=== PATIENT | male | born 1995 | race Caucasian/White ===

== ENCOUNTER 2018-07-08 15:17 | Emergency (ER) | payer OTHER ==
[2018-07-08 16:12] VITALS: BP 137/78
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
== END 2018-07-08 17:13 | disposition home or self-care (01) ==
LOC: UCCORT 15:17
DX: S16.1XXA Strain of muscle, fascia and tendon at neck level, initial encounter (principal); S39.012A Strain of muscle, fascia and tendon of lower back, initial encounter; G44.309 Post-traumatic headache, unspecified, not intractable; V43.92XA Unspecified car occupant injured in collision with other type car in traffic accident, initial encounter; Y92.9 Unspecified place or not applicable
CPT/HCPCS: 99203; G0463

== ENCOUNTER 2018-07-19 16:12 | Emergency (ER) | payer OTHER ==
[2018-07-19 17:41] VITALS: BP 111/65
--- NOTE | 2018-07-19 17:50 | UC ---
Nausea/Vomiting/Diarrhea HPI - HPI Summary HPI Summary: Patient started having diarrhea last evening and has had approximately 5 bouts since last evening the last being approximately 2 hours ago. He denies any vomiting. He denies any abdominal pain. He's had no recent travel outside the [place]. - History of Current Complaint Chief Complaint: [facility] Stated Complaint: DIARRHEA Time Seen by Provider: 07/19/18 17:36 Hx Obtained From: Patient Onset/Duration: Sudden Onset Timing: Intermittent Episodes Lasting: - Intermittent episodes of the past 24 hours. Severity Initially: Moderate Severity Currently: Mild Pain Intensity: 6 Location: Other - Nights abdominal pain. Aggravating Factor(s): Food - Patient states when he eats food then he gets some abdominal cramping and then has bout of diarrhea. Alleviating Factor(s): Nothing Nausea/Vomiting Presence: None Diarrhea Presence: Yes Diarrhea Frequency: Every 3-4 hours - 5 times in the past 24 hours Diarrhea Duration: 12-24 hours Diarrhea Characteristics: Watery - Risk Factors Influenza Risk Factors: Negative Surgical Obstruction Risk Factor(s): Negative - Allergies/Home Medications Allergies/Adverse Reactions: Allergies Allergy/AdvReac Type Severity Reaction Status Date / Time No Known Allergies Allergy Verified 07/19/18 17:41 PMH/Surg Hx/FS Hx/Imm Hx Previously Healthy: Yes - Surgical History Surgical History: None - Family History Known Family History: Positive: Hypertension - Social History Occupation: Student Lives: Dormitory/Roommates Alcohol Use: Weekly Alcohol Amount: once a week Substance Use Type: None Smoking Status (MU): Never Smoked Tobacco Review of Systems All Other Systems Reviewed And Are Negative: Yes Constitutional: Positive: Negative Skin: Positive: Negative Eyes: Positive: Negative ENT: Positive: Negative Respiratory: Positive: Negative Cardiovascular: Positive: Negative Gastrointestinal: Positive: Diarrhea, Nausea. Negative: Abdominal Pain, Vomiting Genitourinary: Positive: Negative Motor: Positive: Negative Neurovascular: Positive: Negative Musculoskeletal: Positive: Negative Neurological: Positive: Negative Psychological: Positive: Negative Is Patient Immunocompromised?: No Physical Exam Triage Information Reviewed: Yes Appearance: Well-Appearing, No Pain Distress, Well-Nourished Vital Signs: Initial Vital Signs Temp 98.3 F 07/19/18 17:37 Pulse 59 07/19/18 17:37 Resp 15 07/19/18 17:37 BP 111/65 07/19/18 17:37 Pulse Ox 100 07/19/18 17:37 Vital Signs Reviewed: Yes Eye Exam: Normal ENT Exam: Normal Neck exam: Normal Respiratory Exam: Normal Cardiovascular Exam: Normal Abdominal Exam: Normal Abdomen Description: Positive: Nontender, No Organomegaly, Soft Bowel Sounds: Positive: Present Musculoskeletal Exam: Normal Neurological Exam: Normal Psychological Exam: Normal Skin Exam: Normal Naus/Vom/Diarrhea Course/Dx - Course Course Of Treatment: Patient has been comfortable here with no bouts of diarrhea while he spent here. He is planning on going on spring break out of the [place] this . - Differential Dx/Diagnosis Differential Diagnoses - Male: Diarrhea Provider Diagnosis: Diarrhea Is Visit Related: No Condition At Discharge: Good Discharge - Sign-Out/Discharge Documenting (check all that apply): Patient Departure All imaging exams completed and their final reports reviewed: No Studies - Discharge Plan Condition: Good Disposition: HOME Prescriptions: Ondansetron TAB* [Zofran 4 MG Tab*] 4 mg PO Q8H PRN #6 tab PRN Reason: Nausea Patient Education Materials: Loperamide (By mouth), Acute Diarrhea (ED) Referrals: Simon Sharma MD [Primary Care Provider] - Additional Instructions: Increase fluids, take the loperamide as directed. Take the Zofran every 8 hours as needed for nausea. - Billing Disposition and Condition Condition: GOOD Disposition: Home - Attestation Statements Provider Attestation: Per institutional requirements, I have reviewed the chart, however, I was not consulted specifically or made aware of this patient by the midlevel provider. I did not personally evaluate, interact with , or disposition this patient.
== END 2018-07-19 17:54 | disposition home or self-care (01) ==
LOC: UCCORT 16:12
DX: R19.7 Diarrhea, unspecified (principal); R10.9 Unspecified abdominal pain; R11.0 Nausea
CPT/HCPCS: 99212; G0463

== ENCOUNTER 2018-08-09 17:25 | Emergency (ER) | payer OTHER ==
[2018-08-09 18:59] VITALS: BP 130/54
--- NOTE | 2018-08-09 19:24 | UC ---
Ear Complaint HPI - HPI Summary HPI Summary: 23-year-old male comes in with a chief complaint of right ear pain. Patient is not a swimmer. No trauma. Feels pressure in the ear. Has tried some ibuprofen that did help some with the pain. Also has a sore throat. - History of Current Complaint Chief Complaint: [facility] Stated Complaint: RT EAR COMPLAINT Time Seen by Provider: 08/09/18 19:17 Pain Intensity: 7 - Allergies/Home Medications Allergies/Adverse Reactions: Allergies Allergy/AdvReac Type Severity Reaction Status Date / Time No Known Allergies Allergy Verified 08/09/18 18:59 Home Medications: Home Medications Ibuprofen TAB* [Motrin TAB* 400 MG] 400 mg PO Q6H PRN 08/09/18 [History Confirmed 08/09/18] PMH/Surg Hx/FS Hx/Imm Hx Previously Healthy: Yes - Surgical History Surgical History: None - Family History Known Family History: Positive: Hypertension - Social History Alcohol Use: Weekly Alcohol Amount: once a week Substance Use Type: None Smoking Status (MU): Never Smoked Tobacco Review of Systems All Other Systems Reviewed And Are Negative: Yes Constitutional: Positive: Negative Skin: Positive: Negative Eyes: Positive: Negative ENT: Positive: Sore Throat, Ear Ache Respiratory: Positive: Negative Cardiovascular: Positive: Negative Gastrointestinal: Positive: Negative Motor: Positive: Negative Neurovascular: Positive: Negative Musculoskeletal: Positive: Negative Neurological: Positive: Negative Psychological: Positive: Negative Is Patient Immunocompromised?: No Physical Exam Triage Information Reviewed: Yes Appearance: Well-Appearing, No Pain Distress, Well-Nourished Vital Signs: Initial Vital Signs Temp 97.9 F 08/09/18 18:56 Pulse 70 08/09/18 18:56 Resp 16 08/09/18 18:56 BP 130/54 08/09/18 18:56 Pulse Ox 98 08/09/18 18:56 Vital Signs Reviewed: Yes Eye Exam: Normal Eyes: Positive: Conjunctiva Clear ENT: Positive: Pharyngeal erythema, Nasal congestion, TM bulging - rt, TM red - rt. Negative: Nasal drainage Neck exam: Normal Neck: Positive: Supple Respiratory: Positive: Lungs clear, Normal breath sounds, No respiratory distress Cardiovascular: Positive: RRR Musculoskeletal Exam: Normal Musculoskeletal: Positive: Strength Intact, ROM Intact Neurological Exam: Normal Neurological: Positive: Alert, Muscle Tone Normal Psychological Exam: Normal Psychological: Positive: Age Appropriate Behavior Skin Exam: Normal Ear Complaint Course/Dx - Differential Dx/Diagnosis Provider Diagnosis: Right acute serous otitis media Discharge - Sign-Out/Discharge Documenting (check all that apply): Patient Departure All imaging exams completed and their final reports reviewed: No Studies - Discharge Plan Condition: Stable Disposition: HOME Prescriptions: Amoxicillin PO (*) [Amoxicillin 875 MG (*)] 875 mg PO BID #20 tab Patient Education Materials: Serous Otitis Media (ED) Referrals: Simon Sharma MD [Primary Care Provider] - Additional Instructions: FOLLOW UP WITH YOUR DOCTOR IF NOT COMPLETELY IMPROVED. GET REEVALUATED SOONER FOR ANY WORSENING OF YOUR CONDITION OR ANY QUESTIONS OR CONCERNS. - Billing Disposition and Condition Condition: STABLE Disposition: Home
== END 2018-08-09 19:33 | disposition home or self-care (01) ==
LOC: UCCORT 17:25
DX: H65.01 Acute serous otitis media, right ear (principal); J02.9 Acute pharyngitis, unspecified
CPT/HCPCS: 99212; G0463

== ENCOUNTER 2018-08-25 15:27 | Emergency (ER) | payer OTHER ==
[2018-08-25 16:24] VITALS: BP 120/59
[2018-08-25] MEDS ORDERED: Ondansetron ODT TAB* 4 MG PO ONE (16:41)
--- NOTE | 2018-08-25 16:45 | UC ---
Nausea/Vomiting/Diarrhea HPI - HPI Summary HPI Summary: 23-year-old male comes in with a chief complaint of nausea vomiting. Patient woke this morning with nausea and vomiting. When he vomits he has upper abdominal pain. he also developed a right-sided headache with all the vomiting. No fevers. He has had a bowel movement today but it was not diarrhea. His mouth feels dry. His only been able to keep a small amount of food down. Trying to eat or drink makes the nausea worse. - History of Current Complaint Chief Complaint: [facility] Stated Complaint: HEADACHE,VOMITTING,NAUSEA Time Seen by Provider: 08/25/18 16:32 Pain Intensity: 5 - Allergies/Home Medications Allergies/Adverse Reactions: Allergies Allergy/AdvReac Type Severity Reaction Status Date / Time No Known Allergies Allergy Verified 08/25/18 16:24 PMH/Surg Hx/FS Hx/Imm Hx Previously Healthy: Yes - Surgical History Surgical History: None - Family History Known Family History: Positive: Hypertension - Social History Alcohol Use: Weekly Alcohol Amount: 2 times a week Substance Use Type: None Smoking Status (MU): Never Smoked Tobacco Review of Systems All Other Systems Reviewed And Are Negative: Yes Constitutional: Positive: Negative Skin: Positive: Negative Eyes: Positive: Negative Respiratory: Positive: Negative Cardiovascular: Positive: Negative Gastrointestinal: Positive: Abdominal Pain, Vomiting, Nausea Motor: Positive: Negative Neurovascular: Positive: Negative Musculoskeletal: Positive: Negative Neurological: Positive: Headache Psychological: Positive: Negative Is Patient Immunocompromised?: No Physical Exam Triage Information Reviewed: Yes Appearance: No Pain Distress, Well-Nourished, Ill-Appearing - MILD Vital Signs: Initial Vital Signs Temp 98.2 F 08/25/18 16:20 Pulse 73 08/25/18 16:20 Resp 16 08/25/18 16:20 BP 120/59 08/25/18 16:20 Pulse Ox 99 08/25/18 16:20 Vital Signs Reviewed: Yes Eye Exam: Normal Eyes: Positive: Conjunctiva Clear ENT: Positive: TMs normal, Other - ORAL MUCOSA SLIGHTLY DRY Neck exam: Normal Neck: Positive: Supple, Nontender Respiratory: Positive: Lungs clear, Normal breath sounds, No respiratory distress Cardiovascular: Positive: RRR Abdomen Description: Positive: Nontender, Soft. Negative: Distended, Guarding Bowel Sounds: Positive: Present Musculoskeletal Exam: Normal Musculoskeletal: Positive: Strength Intact, ROM Intact Neurological Exam: Normal Neurological: Positive: Alert, Muscle Tone Normal Psychological Exam: Normal Psychological: Positive: Age Appropriate Behavior Skin Exam: Normal Naus/Vom/Diarrhea Course/Dx - Course Course Of Treatment: I discussed IV fluids with the patient. At this time he prefers to stay have the by mouth Zofran. It appears that the headache is most likely due to dehydration associated with the nausea and vomiting. Has no diarrhea at this time. The abdominal pain is intermittent and his abdomen was nontender on palpation. Plan will be by mouth Zofran they can get rehydrated take ibuprofen and Tylenol as needed. I let the patient know that if he worsened with dehydration or abdominal pain or fevers he needs to get reevaluated preferably in the emergency department. - Differential Dx/Diagnosis Provider Diagnosis: Nausea & vomiting, Abdominal pain, Dehydration Condition At Discharge: Stable Discharge - Sign-Out/Discharge Documenting (check all that apply): Patient Departure All imaging exams completed and their final reports reviewed: No Studies - Discharge Plan Condition: Stable Disposition: HOME Prescriptions: Ondansetron ODT TAB* [Zofran 4 MG Odt TAB*] 4 mg PO Q6H PRN #10 tab.odt PRN Reason: Nausea Patient Education Materials: Dehydration (ED), Acute Nausea and Vomiting (ED), Acute Abdominal Pain (ED) Forms: *School Release Referrals: Simon Sharma MD [Primary Care Provider] - Additional Instructions: FOLLOW UP WITH YOUR DOCTOR IF NOT COMPLETELY IMPROVED. GO TO THE EMERGENCY DEPARTMENT IF YOUR CONDITION WORSENS; PAIN, FEVER, DEHYDRATION, FEVER OR ANY QUESTIONS OR CONCERNS. - Billing Disposition and Condition Condition: STABLE Disposition: Home
== END 2018-08-25 16:50 | disposition home or self-care (01) ==
LOC: UCCORT 15:27
DX: R11.2 Nausea with vomiting, unspecified (principal); R10.10 Upper abdominal pain, unspecified; E86.0 Dehydration
CPT/HCPCS: 99212; A9270-GY; G0463